=== PATIENT | male | born 1975 | race Caucasian/White ===

== ENCOUNTER 2016-06-30 16:47 | Emergency (ER) | payer OTHER ==
[~2016-06-30] VITALS: Ht 167.6 cm; Wt 79.9 kg
[~2016-06-30 16:47] MED LIST: ATR25 PO; CITA40TA12 PO
[2016-06-30 16:52] VITALS: TEMP 37; Ht 167.6 cm; Wt 79.9 kg
[2016-06-30] MEDS ORDERED: MIRT15TA2 PO (17:01)
[2016-06-30] MEDS ORDERED: IBUP-1428 PO (17:01)
[2016-06-30] MEDS ORDERED: CITA40TA12 PO (17:01)
[2016-06-30] MEDS ORDERED: CLON0.5T3 PO (17:01)
--- NOTE | 2016-06-30 17:44 | DIAGNOSTIC IMAGING REPORT ---
RIGHT RIBS UNILATERAL WITH PA CHEST CLINICAL HISTORY: Right rib pain following fall. COMPARISON STUDY: Right rib series and chest radiograph April 02, 2015. FINDINGS: There is no pneumothorax or pleural effusion. Mild interstitial prominence is unchanged. Lungs are clear. Cardiac size is normal. No acute right rib fractures are identified. IMPRESSION: No pneumothorax. No acute right rib fractures identified. Electronically signed by: Jimmy Dubon M.D. 06/30/2016 5:43 PM Dictated Date/Time: 06/30/2016 5:40 PM
--- NOTE | 2016-06-30 17:53 | EMERGENCY ROOM VISIT NOTE ---
ED Visit Note First contact with patient: 16:54 CHIEF COMPLAINT: Rib injury HISTORY OF PRESENT ILLNESS: This 41-year-old male patient presents to the emergency department ambulatory complaining of pain in the right ribs after a fall which occurred this morning. The patient states that he tripped over a dog gate and felt a pop in the right side of his chest. He is unsure if he hit his ribs, but does state that he has a history of rib fractures on this side. There is increased pain with deep breathing. Attempting to sit up from a lying position is painful. Denies shortness of breath or coughing up blood. The patient rates the pain as sharp and 7/10. The patient has taken ibuprofen without relief of the pain. The patient denies any other injury. The patient denies any abdominal pain, nausea, or vomiting. REVIEW OF SYSTEMS: A 6 system review of systems was completed with positives and pertinent negatives listed in the HPI. ALLERGIES: No known drug allergies MEDICATIONS: Celexa, Klonopin, Remeron PMH: No significant past medical history. SOCIAL HISTORY: The patient lives locally with his fiance. He is a smoker and admits to occasional alcohol use. PHYSICAL EXAM: VITALS: Vitals are noted on the nurse's note and reviewed by myself. Vital signs stable. GENERAL: This is a 41-year-old male, in no acute distress, nondiaphoretic, well- developed well-nourished. LUNGS: Clear to auscultation and breath sounds equal , no wheezes, rales, or rhonchi. HEART: Heart sounds are regular without murmurs, ectopy, gallop, or rub. CHEST: The right chest wall is tender to palpation over the anterior and lateral lower ribs but there is no fracture crepitus and no ecchymosis. There is no tachypnea or dyspnea. ABDOMEN: Positive bowel sounds x 4. Normal tympanic percussion. Soft, nontender, without masses or organomegaly. No guarding or rebound tenderness. NEURO: Patient was alert and oriented to person place and time. RADIOGRAPHIC FINDINGS: RIGHT RIBS UNILATERAL WITH PA CHEST CLINICAL HISTORY: Right rib pain following fall. COMPARISON STUDY: Right rib series and chest radiograph April 02, 2015. FINDINGS: There is no pneumothorax or pleural effusion. Mild interstitial prominence is unchanged. Lungs are clear. Cardiac size is normal. No acute right rib fractures are identified. IMPRESSION: No pneumothorax. No acute right rib fractures identified. EMERGENCY DEPARTMENT COURSE: I examined the patient. X-rays of the chest with right rib detail was reviewed by myself and radiology and show no acute fractures. I feel the patient likely suffered an intercostal strain. Conservative measures were discussed. He was given 800 milligrams ibuprofen here for pain. He was instructed to follow-up with his primary care provider as needed. He verbalized understanding of my assessment and treatment plan and was discharged home in good condition. DIAGNOSIS: Rib strain Problem List Medical Problems: (1) Anxiety and depression Status: Chronic (2) Drug abuse Status: Chronic Surgical Problems: (1) No significant past surgical history Status: Chronic Current/Historical Medications Scheduled Citalopram Hydrobromide (Celexa), 40 MG PO DAILY Mirtazapine Soltab (Remeron Soltab), 15 MG PO HS Scheduled PRN Clonazepam (Klonopin), 0.5 MG PO BID PRN for Anxiety Ibuprofen (Motrin), 800 MG PO DAILY PRN for Pain Allergies Coded Allergies: No Known Allergies (Unverified , 07/05/15) Vital Signs Date Time Temp Pulse Resp B/P Pulse Ox O2 Delivery O2 Flow Rate FiO2 06/30/16 18:19 67 20 123/71 98 06/30/16 16:52 37.0 60 20 119/76 98 Room Air Medications Administered Medications (Trade) Dose Ordered Sig/Carlie Route Start Time Stop Time Status Last Admin Dose Admin Ibuprofen (Motrin Tab) 800 mg NOW STAT PO 06/30/16 18:12 06/30/16 18:13 DC 06/30/16 18:16 800 MG Departure Information Impression Primary Impression: Intercostal muscle strain Dispostion Home / Self-Care Condition GOOD Referrals No Doctor, Assigned (PCP) Patient Instructions [facility] Additional Instructions You have been treated in the Emergency Department for Rib strain. For pain control, you can use the following mwon-kdt-nhlinia medicines (if >12 yo): - Regular strength (325mg/tab) Tylenol (acetaminophen) 2 tabs every 4-6 hours as needed. Do not exceed 12 tablets in a 24 hour period. Avoid taking more than 4 grams (4000 mg) of Tylenol per day. This includes any other sources of acetaminophen you may take on a regular basis. - Regular strength (200 mg/tab) Advil (ibuprofen) 1-2 tabs every 4-6 hours as needed. Do not exceed a dose of 3200 mg per day. If this is an acute injury, ice can be applied to the area of pain for the first 3 days to help decrease pain and inflammation. After the first 3 days, a heating pad can be used over the area for continued soothing relief. To minimize your discomfort, you can hug a pillow while coughing or sneezing. Additionally, you should continue to force yourself to take nice, deep breaths. Full expansion of the lungs is necessary to prevent the accumulation of fluid in the lung tissue and development of pneumonia. You should schedule a follow-up appointment in 2-3 days with your Primary Care Provider for further evaluation and treatment of your back pain. Return to the Emergency Department if your current symptoms worsen despite treatment course outlined above, or if you develop any of the following symptoms : intractable pain despite aforementioned treatment course, development of a wet cough, bloody cough, fever, chills, or increased shortness of breath. Problem Qualifiers Primary Impression: Intercostal muscle strain Encounter type: initial encounter Qualified Codes: S29.011A - Strain of muscle and tendon of front wall of thorax, initial encounter
[2016-06-30] MEDS ORDERED: IBUPROFEN 800 MG TAB PO STA (18:12)
[2016-06-30 18:19] VITALS: BP 123/71; PULSE 67; O2SAT 98
== END 2016-06-30 18:20 | disposition home or self-care (01) ==
LOC: C.EDB 16:49 → C.EDD 18:20
DX: S29.001A Unspecified injury of muscle and tendon of front wall of thorax, initial encounter (principal); W01.0XXA Fall on same level from slipping, tripping and stumbling without subsequent striking against object, initial encounter; F17.200 Nicotine dependence, unspecified, uncomplicated; F41.8 Other specified anxiety disorders; Z79.899 Other long term (current) drug therapy

== ENCOUNTER 2016-07-13 23:39 | Emergency (ER) | payer OTHER ==
[~2016-07-13] VITALS: Ht 167.6 cm; Wt 79.1 kg
[~2016-07-13 23:39] MED LIST changes: -ATR25 PO; +CLON0.5T3 PO; +IBUP-1428 PO; +MIRT15TA2 PO
[2016-07-13 23:42] VITALS: TEMP 36.4; Ht 167.6 cm; Wt 79.1 kg
[2016-07-13] MEDS ORDERED: AMOXICILLIN 250 MG CAP PO STA (23:56)
[2016-07-13] MEDS ORDERED: TRAM-10 PO (23:59)
[2016-07-13] MEDS ORDERED: AMOX500C3 PO (23:59)
[2016-07-14] MEDS ORDERED: TRAMADOL HCL 50 MG HOME PACK PO ONE
--- NOTE | 2016-07-14 00:04 | EMERGENCY ROOM VISIT NOTE ---
History First contact with patient: 23:45 Chief Complaint: DENTAL PAIN Stated Complaint: SEVERE TOOTH PAIN Nursing Triage Summary: c/o dental pain History of Present Illness The patient is a 41 year old male who presents to the Emergency Room with complaints of dental pain for the past several days has not seen a dentist in quite sometime. He has an appointment on Saturday with the dentist. Patient tried Orajel and Motrin with no improvement of symptoms. He discussed pain as aching, ranging in severity 6 out of 10 worse with chewing and better with rest. Patient denies fevers, cold symptoms, sore throat, cough, congestion, chest pain, dyspnea, facial swelling, lightheadedness or dizziness. He is tolerating by mouth fluids and food. Review of Systems See HPI for pertinent positives & negatives. A total of 10 systems reviewed and were otherwise negative. Past Medical/Surgical History Medical Problems: (1) Anxiety and depression (2) Drug abuse (3) Drug overdose, intentional Surgical Problems: (1) No significant past surgical history Family History Cancer Diabetes mellitus Hypertension Social History Smoking Status: Current Every Day Smoker Alcohol Use: none Drug Use: marijuana Marital Status: in relationship Occupation Status: unemployed Current/Historical Medications Scheduled Amoxicillin (Amoxil), 500 MG PO TID Citalopram Hydrobromide (Celexa), 40 MG PO DAILY Mirtazapine Soltab (Remeron Soltab), 15 MG PO HS Scheduled PRN Clonazepam (Klonopin), 0.5 MG PO BID PRN for Anxiety Ibuprofen (Motrin), 800 MG PO DAILY PRN for Pain Tramadol (Ultram), 1 TAB PO Q4H PRN for Pain Allergies Coded Allergies: No Known Allergies (Unverified , 07/05/15) Physical Exam Vital Signs Date Time Temp Pulse Resp B/P Pulse Ox O2 Delivery O2 Flow Rate FiO2 07/13/16 23:42 36.4 68 18 154/96 97 Room Air Physical Exam VITALS: Vitals are noted on the nurse's note and reviewed by myself. Vital signs stable. GENERAL: White male with tobacco odor, in no acute distress, nondiaphoretic, well-developed well-nourished. SKIN: The skin was without rashes, erythema, edema, or bruising. There is no tenting of the skin. Capillary reflex less than 2 seconds. HEAD: Normocephalic atraumatic. EARS: External auditory canals clear, tympanic membranes pearly wharton without erythema or effusion bilaterally. EYES: Pupils equal round and reactive to light and accommodation. Conjunctivae without injection, sclerae without icterus. Extraocular movements intact. NOSE: Patent, turbinates without inflammation or discharge. No sinus tenderness. MOUTH: Mucous membranes moist. No Yair's angina Pharynx without erythema or exudate. Uvula midline. Airway patent. Tongue does not deviate. Dental exam: Extensive dental decay with no palpable abscess NECK: Supple without nuchal rigidity. No lymphadenopathy. No thyromegaly. Cervical spine is nontender. No JVD. HEART: Regular rate and rhythm without murmurs gallops or rubs. LUNGS: Clear to auscultation bilaterally without wheezes, rales or rhonchi. No dullness to percussion. No retractions or accessory muscle use. ABDOMEN: Positive bowel sounds x 4. Normal tympanic percussion. Soft, nontender, without masses or organomegaly. Jean sign negative. No guarding or rebound tenderness. MUSCULOSKELETAL: No muscle atrophy, erythema, or edema noted. NEURO: Patient was alert and oriented to person place and time. Normal sensation to light and sharp touch. No focal neurological deficits. Medical Decision & Procedures ED Course Prior records reviewed and summarized as above. Triage Nursing notes reviewed. Additional history obtained from friend. The patient's history was concerning for dental pain. Differential diagnosis: Etiologies such as cellulitis, abscess, Yair's angina, gingivitis, as well as others were entertained.. Physical examination: The physical examination was consistent with and the pain and dental caries ER treatment provided: Amoxicillin, Ultram On reassessment the patient felt better. Diagnostics interpreted by me: Deferred This appears to be dental pain and dental caries. Patient had no palpable abscess. He is afebrile and nontoxic. No signs of airway compromise. He was counseled on proper dental hygiene and verbalized understanding of this. He was advised to keep his appointment as scheduled with dentistry on Saturday for definitive care for his ongoing dental issues. He is advised to return to the ER immediately for facial swelling, fevers, difficulty swelling, worsening signs or symptoms or as needed. By the evaluation outlined above emergent etiologies such as abscess, Yair angina, as well as others were deemed relatively unlikely. The pt informed about the findings as listed above. All questions were answered and pleased with the treatment. Return instructions were outlined and the patient was discharged in stable condition. Outpatient prescription management: Amoxicillin, Ultram Referral: The patient was referred back to dentistry for follow-up in 2 to 3 days for a recheck of the current condition. Medical Decision As above [place] [facility] Monitoring [place] Search Results: patient reviewed within database, no issues identified Impression Primary Impression: Dental caries Additional Impression: Tooth pain with chewing Departure Information Dispostion Home / Self-Care Condition GOOD Prescriptions Tramadol (Ultram) 50 Mg Tab 1 TAB PO Q4H Y for Pain, #10 TAB For Initial Treatment Prov: Xochilt Romero .BRINA 07/13/16 Amoxicillin (AMOXIL) 500 Mg Cap 500 MG PO TID for 10 Days, #30 CAP Prov: Xochilt Romero .BRINA 07/13/16 Referrals No Doctor, Assigned (PCP) Forms HOME CARE DOCUMENTATION FORM, IMPORTANT VISIT INFORMATION Patient Instructions [facility] Additional Instructions Amoxicillin 500mg: Take one pill 3 times daily for 10 days for your infection. All antibiotics can cause diarrhea. If this occurs and you feel worse or it does not resolve in 1-2 days follow up with your doctor or return to the Emergency Department as this could be signs of serious underlying problems. Any medication can cause an allergic reaction, stop the pills immediately and return to the ER for rash, hives, breathing difficulties, or swelling. Ultram 50 mg: Take 1-2 pills every four hours for breakthrough pain. Avoid alcohol, operating machinery or dangerous equipment, working on ladders or roofs , DRIVING, or situations where being under the influence may be dangerous. It is recommended to use an yjxv-ldo-wlzbzdy stool softener such as Colace, 100mg twice daily while taking this medication to avoid constipation. Ibuprofen(Motrin, Advil) may be used for fever or pain. Use 600mg every six hours as needed. Take with food. Avoid using more than 2400mg in a 24 hour period. Do not use 2400mg per day for more than three consecutive days without physician direction. Prolonged inappropriate use can lead to stomach upset or ulcers. This medication can be taken if you need to drive, work, or perform activities which may be dangerous when taking narcotic pain medication. (AND/OR) Acetaminophen(Tylenol) may be used for fever or pain. Use 1000mg every six hours as needed. Avoid using more than 3000mg in a 24 hour period. This medication can be taken if you need to drive, work, or perform activities which may be dangerous when taking narcotic pain medication. [place] teeth twice a day, floss daily and do warm saltwater gargles 3 times a day. See a dentist as soon as possible for definitive care for your dental problem. Return to ER sooner for facial swelling, fever, redness, worsening signs or symptoms or as needed. Problem Qualifiers
[2016-07-14 00:07] VITALS: BP 116/80; PULSE 65; O2SAT 97
== END 2016-07-14 00:10 | disposition home or self-care (01) ==
LOC: C.EDB 23:40 → C.EDA 07-14 00:10
DX: K02.9 Dental caries, unspecified (principal); K08.89 Other specified disorders of teeth and supporting structures; F41.8 Other specified anxiety disorders; F12.90 Cannabis use, unspecified, uncomplicated; F17.200 Nicotine dependence, unspecified, uncomplicated; Z83.3 Family history of diabetes mellitus; Z82.49 Family history of ischemic heart disease and other diseases of the circulatory system

== ENCOUNTER 2016-08-13 20:27 | Emergency (ER) | payer OTHER ==
[~2016-08-13] VITALS: Ht 167.6 cm; Wt 75.3 kg
[~2016-08-13 20:27] MED LIST changes: +TRAM-10 PO
[2016-08-13 20:30] VITALS: TEMP 36.5; Ht 167.6 cm; Wt 75.3 kg
[2016-08-13] MEDS ORDERED: SODIUM CHLORIDE 0.9% 1000ML 1,000 ML IV STA (20:40)
[2016-08-13] MEDS ORDERED: GI COCKTAIL PO STA (20:40)
[2016-08-13] MEDS ORDERED: SUCRALFATE 1 GM TAB PO STA (20:40)
[2016-08-13] MEDS ORDERED: FAMOTIDINE 20 MG TAB PO STA (20:40)
--- NOTE | 2016-08-13 20:49 | EMERGENCY ROOM VISIT NOTE ---
History Report prepared by Ashley: Sherry Luna Under the Supervision of: Dr. Rich Nolan M.D. First contact with patient: 20:34 Chief Complaint: RESPIRATORY PROBLEMS Stated Complaint: SORE THROAT, SWELLING, HARD TIME BREATHING History of Present Illness The patient is a 41 year old male who presents to the Emergency Room with complaints of persistent respiratory problems that began prior to arrival. The patient states that for the last 15 days he has been out of his Klonopin. The patient states that there is a block on his account for his Klonopin, but states that he is not concerned about running out of the medication. The patient states that recently he has had difficultly breathing, has been chilled , and diaphoretic. He states that he has had a sore throat and states that he feels like something is stuck in his throat. The patient states that he has been feeling fatigued today as well. He states that he has had difficulty swallowing and breathing. Source of History: patient Onset: prior to arrival Position: other (global) Quality: other (respiratory problems) Timing: other (persistent) Associated Symptoms: + chills, + diaphoresis, + fatigue, + sorethroat Note: Associated Symptoms: difficulty swallowing, something stuck in his throat Review of Systems See HPI for pertinent positives & negatives. A total of 10 systems reviewed and were otherwise negative. Past Medical & Surgical Medical Problems: (1) Anxiety and depression (2) Drug abuse (3) Drug overdose, intentional Surgical Problems: (1) No significant past surgical history Family History Cancer Diabetes mellitus Hypertension Social History Smoking Status: Current Every Day Smoker Alcohol Use: none Drug Use: marijuana Marital Status: in relationship Occupation Status: unemployed Current/Historical Medications Scheduled Citalopram Hydrobromide (Celexa), 40 MG PO DAILY Famotidine (Pepcid), 40 MG PO HS Mirtazapine Soltab (Remeron Soltab), 15 MG PO HS Scheduled PRN Clonazepam (Klonopin), 1 TAB PO BID PRN for Anxiety/Agitation Allergies Coded Allergies: No Known Allergies (Unverified , 08/13/16) Physical Exam Vital Signs Date Time Temp Pulse Resp B/P Pulse Ox O2 Delivery O2 Flow Rate FiO2 08/13/16 22:46 76 18 116/77 98 08/13/16 21:08 98 Room Air 08/13/16 21:02 74 08/13/16 20:40 97 Room Air 08/13/16 20:30 36.5 82 16 130/89 97 Room Air Physical Exam GENERAL: Patient is a healthy-appearing well-nourished HEAD: Normocephalic atraumatic EYES: Ocular movements intact pupils equal and react to light OROPHARYNX mucous membranes are moist no exudates present no erythema or edema present NECK: Supple no nuchal rigidity CHEST: Good equal expansion LUNGS: Clear and equal to auscultation CARDIAC: Normal S1 and S2 ABDOMEN: Soft nontender no guarding BACK: No CVA tenderness EXTREMITIES: No pain upon palpation normal muscle strength in all groups no clubbing cyanosis or edema NEURO: Patient is following commands is answering questions appropriately. Alert and oriented x3 Cranial Nerves 2-12 grossly intact Medical Decision & Procedures ER Provider Diagnostic Interpretation: Radiology results as stated below per my review and radiologist interpretation: SOFT TISSUES NECK 2 VIEWS CLINICAL HISTORY: Foreign body sensation in the throat. FINDINGS: AP and lateral views of the soft tissues of the neck are obtained. No prior studies are available for comparison at the time of dictation. The pharyngeal soft tissues are normal as visualized. No radiodense foreign body is seen. The prevertebral/retropharyngeal soft tissues are unremarkable. The epiglottic shadow is normal. The airway is widely patent. Mild degenerative change is noted at C5-C6. Visualized apical lung parenchyma is clear. IMPRESSION: Unremarkable radiographic assessment of the soft tissues of the neck. Electronically signed by: Danyel De Jesus M.D. 08/13/2016 9:36 PM Dictated Date/Time: 08/13/2016 9:34 PM SINGLE VIEW CHEST CLINICAL HISTORY: Foreign body sensation in the throat. FINDINGS: An AP, portable, upright chest radiograph is compared to study dated 06/30/2016. The examination is degraded by portable technique and patient rotation. The cardiomediastinal silhouette is unremarkable. No radiodense foreign body is identified. The lungs and pleural spaces are clear. No pneumothorax is seen. The bony thorax is grossly intact. IMPRESSION: No active disease in the chest. Electronically signed by: Danyel De Jesus M.D. 08/13/2016 9:34 PM Dictated Date/Time: 08/13/2016 9:33 PM Laboratory Results 08/13/16 20:57 Red Blood Count 5.38, Mean Corpuscular Volume 86.6, Mean Corpuscular Hemoglobin 31.2, Mean Corpuscular Hemoglobin Concent 36.1, Mean Platelet Volume 10.7, Neutrophils (%) (Auto) 56.7, Lymphocytes (%) (Auto) 31.6, Monocytes (%) (Auto) 8.4, Eosinophils (%) (Auto) 2.9, Basophils (%) (Auto) 0.2, Neutrophils # (Auto) 6.51, Lymphocytes # (Auto) 3.63, Monocytes # (Auto) 0.96, Eosinophils # (Auto) 0.33, Basophils # (Auto) 0.02 08/13/16 20:57 Test 08/13/16 20:57 08/13/16 21:08 White Blood Count 11.47 K/uL (4.8-10.8) Red Blood Count 5.38 M/uL (4.7-6.1) Hemoglobin 16.8 g/dL (14.0-18.0) Hematocrit 46.6 % (42-52) Mean Corpuscular Volume 86.6 fL (80-100) Mean Corpuscular Hemoglobin 31.2 pg (25-34) Mean Corpuscular Hemoglobin Concent 36.1 g/dl (32-36) Platelet Count 345 K/uL (130-400) Mean Platelet Volume 10.7 fL (7.4-10.4) Neutrophils (%) (Auto) 56.7 % Lymphocytes (%) (Auto) 31.6 % Monocytes (%) (Auto) 8.4 % Eosinophils (%) (Auto) 2.9 % Basophils (%) (Auto) 0.2 % Neutrophils # (Auto) 6.51 K/uL (1.4-6.5) Lymphocytes # (Auto) 3.63 K/uL (1.2-3.4) Monocytes # (Auto) 0.96 K/uL (0.11-0.59) Eosinophils # (Auto) 0.33 K/uL (0-0.5) Basophils # (Auto) 0.02 K/uL (0-0.2) RDW Standard Deviation 41.6 fL (36.4-46.3) RDW Coefficient of Variation 13.1 % (11.5-14.5) Immature Granulocyte % (Auto) 0.2 % Immature Granulocyte # (Auto) 0.02 K/uL (0.00-0.02) Anion Gap 10.0 mmol/L (3-11) Est Creatinine Clear Calc Drug Dose 101.8 ml/min Estimated GFR () 125.1 Estimated GFR (Non- 108.0 BUN/Creatinine Ratio 14.7 (10-20) Calcium Level 9.6 mg/dl (8.5-10.1) Total Bilirubin 0.9 mg/dl (0.2-1) Direct Bilirubin 0.2 mg/dl (0-0.2) Aspartate Amino Transf (AST/SGOT) 16 U/L (15-37) Alanine Aminotransferase (ALT/SGPT) 32 U/L (12-78) Alkaline Phosphatase 109 U/L (45-117) Total Protein 7.6 gm/dl (6.4-8.2) Albumin 4.5 gm/dl (3.4-5.0) Thyroid Stimulating Hormone (TSH) 1.960 uIu/ml (0.300-4.500) Monoscreen NEG (NEG) Ethyl Alcohol mg/dL < 3.0 mg/dl (0-3) Labs reviewed by ED physician. Medications Administered Medications (Trade) Dose Ordered Sig/Carlie Route Start Time Stop Time Status Last Admin Dose Admin Sodium Chloride (Nss 1000ml) 1,000 ml @ 999 mls/hr Q1H1M STAT IV 08/13/16 20:40 08/13/16 21:40 DC 08/13/16 21:37 999 MLS/HR Famotidine (Pepcid Tab) 20 mg NOW STAT PO 08/13/16 20:40 08/13/16 20:44 DC 08/13/16 21:37 20 MG Sucralfate (Carafate Tab) 1 gm NOW STAT PO 08/13/16 20:40 08/13/16 20:44 DC 08/13/16 21:37 1 GM Clonazepam (Klonopin Tab) 0.5 mg NOW STAT PO 08/13/16 21:20 08/13/16 21:21 DC 08/13/16 21:37 0.5 MG Al Hydroxide/Mg Hydroxide (Maalox Susp) 30 ml STK-MED ONCE .ROUTE 08/13/16 21:31 08/13/16 21:32 DC 5/15/17 21:37 30 ML Lidocaine HCl (Viscous Lidocaine 2% Soln) 20 ml STK-MED ONCE .ROUTE 08/13/16 21:32 08/13/16 21:33 DC 08/13/16 21:37 20 ML ECG Indication: other (fatigue) Rate (beats per minute): 75 Rhythm: normal sinus Findings: no acute ischemic change, no ectopy ED Course 2036: Past medical records reviewed. The patient was evaluated in room B12B. A complete history and physical examination was performed. 2039: Ordered Sucralfate 1 gm PO, Famotidine 20 mg PO, GI Cocktail 24 ml PO, Sodium Chloride 1000 ml @ 999 mls/hr IV. 2119: Ordered Clonazepam 0.5 mg PO. 2214: I reevaluated the patient and he is resting comfortably. I discussed the exam findings with him and I discussed the treatment plan. He verbalized complete understanding and agreement. He is ready to go home. Medical Decision Differential diagnosis: Etiologies such as metabolic, infection, hypo/hyperglycemia, electrolyte abnormalities, cardiac sources, intracerebral event, toxicologic, neurologic, as well as others were entertained. This is a 41-year-old male who presents emergency Department with multiple complaints. The patient's clonidine was recently stopped other both the patient and his friend feel that this was a pharmacy error. I did do a PDM P search on this patient and no Klonopin prescriptions came up. For this reason I felt he could be given a temporary supply as he is going to follow-up with his primary care physician. For this reason the patient was given 0.5 mg of Klonopin in the emergency department. He was given normal saline bolus. He does have a slight elevation in his white blood count cell count however he has no evidence of infection and is afebrile here. He was also given Pepcid Carafate and GI cocktail for GERD. Repeat examination revealed improvement patient's symptoms. I recommended the patient be placed on Pepcid and encouraged follow-up with his primary care physician. Patient and friend were in agreement with the treatment plan. Impression Primary Impression: GERD (gastroesophageal reflux disease) Scribe Attestation The scribe's documentation has been prepared under my direction and personally reviewed by me in its entirety. I confirm that the note above accurately reflects all work, treatment, procedures, and medical decision making performed by me. Departure Information Dispostion Home / Self-Care Prescriptions Clonazepam (KLONOPIN) 0.5 Mg Tab 1 TAB PO BID Y for Anxiety/Agitation for 5 Days, #10 TAB Prov: Rich Nolan MD 08/13/16 Famotidine (Pepcid) 40 Mg Tab 40 MG PO HS for 30 Days, #30 TAB Prov: Rich Nolan MD 08/13/16 Referrals No Doctor, Assigned (PCP) Forms HOME CARE DOCUMENTATION FORM, IMPORTANT VISIT INFORMATION, WORK / SCHOOL INSTRUCTIONS Patient Instructions ED Diet Clear Liquid, GERD, [facility] Additional Instructions Clear liquid diet next 48 hours Culture results should be ready in 48 hours You have been examined and treated today on an emergency basis only. This is not a substitute for, or an effort to provide, complete comprehensive medical care. It is impossible to recognize and treat all injuries or illnesses in a single emergency department visit. It is therefore important that you follow up closely with your PCP. Call as soon as possible for an appointment. Thank you for your time and consideration. I look forward to speaking with you again soon. Please don't hesitate to call us if you have any questions. Problem Qualifiers Primary Impression: GERD (gastroesophageal reflux disease) Esophagitis presence: esophagitis presence not specified Qualified Codes: K21.9 - Gastro-esophageal reflux disease without esophagitis
[2016-08-13 21:08] VITALS: O2SAT 98
[2016-08-13 21:08] LABS: BASO % 0.2 %; BASO ABS # 0.02 K/uL (0-0.2); COMPLETE YES; EOS % 2.9 %; HEMATOCRIT 46.6 % (42-52); IG% 0.2 %; LYMPH % 31.6 %; LYMPH ABS # 3.63 K/uL (1.2-3.4); MEAN CELL VOLUME 86.6 fL (80-100); MEAN CORPUSCULAR HEMOGLOBIN 31.2 pg (25-34); MEAN CORPUSCULAR HGB CONC 36.1 g/dl (32-36); MEAN PLATELET VOLUME 10.7 fL (7.4-10.4); MONO % 8.4 %; NEUT % 56.7 %; PLATELET COUNT 345 K/uL (130-400); RED BLOOD COUNT 5.38 M/uL (4.7-6.1); WHITE BLOOD COUNT 11.47 K/uL (4.8-10.8)
[2016-08-13] MEDS ORDERED: CLONAZEPAM 0.5 MG TAB PO STA (21:20)
[2016-08-13 21:26] LABS: BUN/CREATININE RATIO 14.7 (10-20); CREATININE 0.87 mg/dl (0.60-1.40); POTASSIUM 3.7 mmol/L (3.5-5.1)
[2016-08-13] MEDS ORDERED: ALUMINUM/MAGNESIUM SUSP 30 ML UDC ONE (21:31)
[2016-08-13] MEDS ORDERED: LIDOCAINE HCL 2% VISC SOLN 20 ML UDC ONE (21:32)
--- NOTE | 2016-08-13 21:35 | DIAGNOSTIC IMAGING REPORT ---
SINGLE VIEW CHEST CLINICAL HISTORY: Foreign body sensation in the throat. FINDINGS: An AP, portable, upright chest radiograph is compared to study dated 06/30/2016. The examination is degraded by portable technique and patient rotation. The cardiomediastinal silhouette is unremarkable. No radiodense foreign body is identified. The lungs and pleural spaces are clear. No pneumothorax is seen. The bony thorax is grossly intact. IMPRESSION: No active disease in the chest. Electronically signed by: Danyel De Jesus M.D. 08/13/2016 9:34 PM Dictated Date/Time: 08/13/2016 9:33 PM
[2016-08-13 21:36] LABS: THYROID STIMULATING HORMONE 1.96 uIu/ml (0.300-4.500)
--- NOTE | 2016-08-13 21:37 | DIAGNOSTIC IMAGING REPORT ---
SOFT TISSUES NECK 2 VIEWS CLINICAL HISTORY: Foreign body sensation in the throat. FINDINGS: AP and lateral views of the soft tissues of the neck are obtained. No prior studies are available for comparison at the time of dictation. The pharyngeal soft tissues are normal as visualized. No radiodense foreign body is seen. The prevertebral/retropharyngeal soft tissues are unremarkable. The epiglottic shadow is normal. The airway is widely patent. Mild degenerative change is noted at C5-C6. Visualized apical lung parenchyma is clear. IMPRESSION: Unremarkable radiographic assessment of the soft tissues of the neck. Electronically signed by: Danyel De Jesus M.D. 08/13/2016 9:36 PM Dictated Date/Time: 08/13/2016 9:34 PM
[2016-08-13 21:57] LABS: CALCIUM 9.6 mg/dl (8.5-10.1)
[2016-08-13] MEDS ORDERED: FAMO40TA6 PO (22:28)
[2016-08-13] MEDS ORDERED: CLON0.5T3 PO (22:28)
[2016-08-13 22:46] VITALS: BP 116/77; PULSE 76; O2SAT 98
--- NOTE | 2016-08-14 13:00 | Pharmacy Progress Note ---
ED Pharmacist Progress Note Date of Service: August 14, 2016. Patient called today stating that [facility] would not fill the Rx Dr Nolan had given for Clonazepam. He was seen and evaluated in the ER for c/ o chills, fatigue, diaphoresis and sore throat. He was ultimately dx with GERD and also felt to have some symptoms of benzo withdrawal. He had been taking Clonazepam chronically but states he ran out on [address] Nolan had sent a Rx to [facility] for the 5 days supply, but the pharmacy stated that the [facility] has blocked them from filling the Rx. I spoke the the pharmacist there today and she stated the [facility] blocks filling of this Rx as the Rx is for the same dose as his chronic rx and that he had filled #180 tablets on 05/23/16 a 90 days-supply and he is not permitted to have the Rx filled until 08/18. I reviewed the case w/ Dr Helms, he is advised to monitor for worsening s/s of withdrawal, anxiety, tremors, sz, hallucinations. If he has been w/o clonazepam for 14 days, one would expect him to be beyond most of the severe withdrawal symptoms. There is question as to whether he is taking as prescribed. Advised patient of s/s withdrawal and that he should return to ER for eval if concerning symptoms develop, but the ER cannot override the [facility]'s block on his clonazepam refill.
== END 2016-08-13 23:05 | disposition home or self-care (01) ==
LOC: C.EDB 20:27
DX: K21.9 Gastro-esophageal reflux disease without esophagitis (principal); J02.9 Acute pharyngitis, unspecified; R61 Generalized hyperhidrosis; R53.83 Other fatigue; F41.9 Anxiety disorder, unspecified; F32.9 Major depressive disorder, single episode, unspecified; Z79.899 Other long term (current) drug therapy; Z82.49 Family history of ischemic heart disease and other diseases of the circulatory system; Z83.3 Family history of diabetes mellitus; F17.200 Nicotine dependence, unspecified, uncomplicated

== ENCOUNTER 2017-04-11 22:04 | Emergency (ER) | payer OTHER ==
[~2017-04-11] VITALS: Ht 167.6 cm; Wt 74.3 kg
[~2017-04-11 22:04] MED LIST changes: -CITA40TA12 PO; -IBUP-1428 PO; -TRAM-10 PO
[2017-04-11 23:03] VITALS: TEMP 36.2; Ht 167.6 cm; Wt 74.3 kg
[2017-04-11] MEDS ORDERED: RABIES IMMUNE GLOBULIN (HUMAN) 150 INTER.UNIT/ML 2 ML VIAL IM. ONE (23:30)
[2017-04-11] MEDS ORDERED: AMOXICILLIN/CLAVULANATE TAB 875 MG TAB PO ONE (23:30)
[2017-04-11] MEDS ORDERED: DIPHTHERIA/TETANUS/PERTUSSIS 0.5 ML SYR/VIAL IM. ONE (23:30)
[2017-04-11] MEDS ORDERED: RABIES VACCINE (IMOVAX) HUMAN DIPL CELL 2.5 INTER.UNIT/ML SYR IM. ONE (23:30)
--- NOTE | 2017-04-11 23:30 | EMERGENCY ROOM VISIT NOTE ---
ED Visit Note First contact with patient: 23:16 CHIEF COMPLAINT: Cat bite HISTORY OF PRESENT ILLNESS: This patient is a 42-year-old white male that presents to the emergency department with a cat bite to his left finger that he sustained 3 days ago. The patient rescued a stray kitten off the street. They were playing when the cat bit him. They're unsure of his vaccination status. The patient's tetanus shot is also not up-to-date. He denies any fever or chills. Denies any significant pain at the cat bite site. REVIEW OF SYSTEMS: A 6 system review of systems was completed with positives and pertinent negatives listed in the HPI. ALLERGIES: No known drug allergies MEDICATIONS: Celexa, Remeron, Klonopin PMH: Depression, anxiety. SOCIAL HISTORY: He smokes approximately 1 pack per day. Denies alcohol or drug use.. PHYSICAL EXAM: Vital Signs: Reviewed Nurse's notes, vital signs stable. GENERAL : 42-year-old male, in no acute distress, well-developed, well-nourished. HEAD : Atraumatic, without temporal or scalp tenderness. EYES: PERRLA, EOMI, no discharge or injection. SKIN: Small area of erythema and 2 round 1 mm vesicles noted to the distal aspect of the left finger. Full range of motion of the left finger. Capillary refills less than 2 seconds. NEUROLOGICAL: Alert and oriented to person place and time. EMERGENCY DEPARTMENT COURSE: I examined the patient. He was given an Adacel injection. He was given 1 dose of Augmentin. The patient was given RIG 20 Units/kg. . The patient was given Imovax IM. The patient was observed for 20 minutes with no reaction. The patient was discharged home in stable condition. DIAGNOSIS: Rabies prophylaxis, cat bite DISCHARGE INSTRUCTIONS: Please take the entire course of antibiotics as directed. Please wash the area daily with soap and water. Apply Neosporin to the wound daily for the first 3 days. Today is day 0. Return to the ER on days 3, 7, and 14 for subsequent vaccinations. Return sooner or follow up with your family doctor for signs of infection (increased redness, discharge, fever) or for complications with the vaccine series.
[2017-04-11] MEDS ORDERED: MIRT45TA PO (23:33)
[2017-04-11] MEDS ORDERED: AMOX875T PO (23:40)
[2017-04-12 00:42] VITALS: BP 104/67; PULSE 65; O2SAT 97
[2017-04-15] MEDS ORDERED: CITA40TA12 PO (17:01)
== END 2017-04-12 00:38 | disposition home or self-care (01) ==
LOC: C.EDB 22:05 → C.EDD 04-12 00:38
DX: Z20.3 Contact with and (suspected) exposure to rabies (principal); S61.259A Open bite of unspecified finger without damage to nail, initial encounter; W55.01XA Bitten by cat, initial encounter; F32.9 Major depressive disorder, single episode, unspecified; F41.9 Anxiety disorder, unspecified; F17.200 Nicotine dependence, unspecified, uncomplicated; Z23 Encounter for immunization

== ENCOUNTER 2017-04-15 21:02 | Emergency (ER) | payer OTHER ==
[~2017-04-15] VITALS: Ht 167.6 cm; Wt 75.5 kg
[~2017-04-15 21:02] MED LIST changes: +AMOX875T PO; +CITA40TA12 PO; -CLON0.5T3 PO; -MIRT15TA2 PO; +MIRT45TA PO
[2017-04-15 21:06] VITALS: TEMP 36.2; Ht 167.6 cm; Wt 75.5 kg
[2017-04-15] MEDS ORDERED: RABIES VACCINE (IMOVAX) HUMAN DIPL CELL 2.5 INTER.UNIT/ML SYR IM. ONE (21:15)
--- NOTE | 2017-04-15 21:35 | EMERGENCY ROOM VISIT NOTE ---
ED Visit Note First contact with patient: 21:09 CHIEF COMPLAINT: Rabies prophylaxis HISTORY OF PRESENT ILLNESS: This 42-year-old male patient presents to the emergency department ambulatory for their second rabies shot. The patient has not had any complications from the previous injections. They deny any other complaints. He is taking the antibiotics as prescribed and states that the wound is healing well. REVIEW OF SYSTEMS: A 6 system review of systems was completed with positives and pertinent negatives listed in the HPI. ALLERGIES: No known drug allergies MEDICATIONS: See med list PMH: "Bowel issues" per patient PHYSICAL EXAM: Vital Signs: Reviewed Nurse's notes, vital signs stable. GENERAL : This is a 42-year-old male, in no acute distress, well-developed, well- nourished. HEAD: Atraumatic, without temporal or scalp tenderness. EYES: PERRLA, EOMI, no discharge or injection. SKIN: Normal. NEUROLOGICAL: Alert and cooperative. Sensory and motor functions grossly intact. EMERGENCY DEPARTMENT COURSE: I examined the patient. The patient was given Imovax 2.5 units IM. The patient was observed for 20 minutes with no reaction. The patient was discharged home in stable condition. DIAGNOSIS: Rabies prophylaxis DISCHARGE INSTRUCTIONS: Continue vaccination schedule as directed. Return for any complications. Problem List Medical Problems: (1) Anxiety and depression Status: Chronic (2) Drug abuse Status: Chronic Surgical Problems: (1) No significant past surgical history Status: Chronic Current/Historical Medications Scheduled Amoxicillin & Pot Clavulanate (Augmentin 875-125 mg), 1 TAB PO BID Citalopram Hydrobromide (Celexa), 40 MG PO DAILY Famotidine (Pepcid), 20 MG PO DAILY Hydrocortisone 2.5% (Rectal) (Anusol-Hc 2.5%), 1 APPLN TOP BID Mirtazapine (Remeron), 15 MG PO HS Scheduled PRN Clonazepam (Klonopin), 0.25 MG PO BID PRN for Anxiety Dicyclomine Hcl (Dicyclomine Hcl), 20 MG PO QID PRN for Moderate Abdominal Pain Allergies Coded Allergies: No Known Allergies (Unverified , 08/13/16) Vital Signs Date Time Temp Pulse Resp B/P (MAP) Pulse Ox O2 Delivery O2 Flow Rate FiO2 04/15/17 21:43 78 18 131/78 100 1/15/18 21:06 36.2 82 18 121/74 96 Room Air Medications Administered Medications (Trade) Dose Ordered Sig/Carlie Route Start Time Stop Time Status Last Admin Dose Admin Rabies Vaccine Human Diploid Cell (Imovax Rabies) 2.5 interunit ONCE ONCE IM. 04/15/17 21:15 04/15/17 21:16 DC 04/15/17 21:26 2.5 INTERUNIT Departure Information Impression Primary Impression: Rabies, need for prophylactic vaccination against Dispostion Home / Self-Care Condition GOOD Referrals Rabia Bautista D.O. (PCP) Patient Instructions [facility] Additional Instructions Return as directed on your initial paperwork for the remaining injections.
[2017-04-15] MEDS ORDERED: HYDR2.5C37 TOP (21:36)
[2017-04-15] MEDS ORDERED: DICY20TA10 PO (21:36)
[2017-04-15] MEDS ORDERED: FAMO20TA11 PO (21:36)
[2017-04-15] MEDS ORDERED: MIRT15TA3 PO (21:36)
[2017-04-15 21:43] VITALS: BP 131/78; PULSE 78; O2SAT 100
[2017-04-15] MEDS ORDERED: CLON0.5T3 PO (23:32)
== END 2017-04-15 21:44 | disposition home or self-care (01) ==
LOC: C.EDB 21:03 → C.EDD 21:44
DX: Z23 Encounter for immunization (principal); Z20.3 Contact with and (suspected) exposure to rabies

== ENCOUNTER 2017-05-01 16:07 | Emergency (ER) | payer OTHER ==
[~2017-05-01] VITALS: Ht 167.6 cm; Wt 73.1 kg
[2017-05-01 16:23] VITALS: Ht 167.6 cm; Wt 73.1 kg
[2017-05-01] MEDS ORDERED: CITA40TA12 PO (17:01)
[2017-05-01 17:48] VITALS: TEMP 36.4; O2SAT 98
--- NOTE | 2017-05-01 18:11 | EMERGENCY ROOM VISIT NOTE ---
History Report prepared by Ashley: Isabel Cook Under the Supervision of: Dr. Se Silva M.D. First contact with patient: 17:51 Chief Complaint: GI ASSESSMENT Stated Complaint: INTESTINAL ISSUES, 3RD RABIES VACCINE Nursing Triage Summary: Diarrhea x 1 month, went 5x today. Stool Sample done at [facility]. C. Diff negative Pt also need 3rd Rabies Vaccine. Stray Cat Bite. Seen here for initial Vaccine. Nausea. Reflux, taking Prilosec. History of Present Illness The patient is a 42 year old white male with a past medical history of GERD, anxiety and depression who presents to the ED with a cc of persistent diarrhea beginning 1 month ago. Positive nausea, abdominal pain. Negative vomiting. He reports he has had 5 episodes of diarrhea so far today. The patient had a C- Diff stool test done at [facility] recently and it came back negative. He has never undergone abdominal surgery. He has been getting rabies vaccines here at the ED for a stray cat bite and is due for his 3rd vaccine. He denies any recent camping, hiking or trips. He states his home used to have well water, but he believes it was treated and he no longer uses a well. He denies any recent falls. 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 A total of ten systems were reviewed and were otherwise negative. Past Medical & Surgical Medical Problems: (1) Anxiety and depression (2) Drug abuse (3) Drug overdose, intentional Surgical Problems: (1) No significant past surgical history Family History Cancer Diabetes mellitus Hypertension Social History Smoking Status: Current Every Day Smoker Alcohol Use: none Drug Use: marijuana Marital Status: in relationship Occupation Status: unemployed Current/Historical Medications Scheduled Citalopram Hydrobromide (Celexa), 40 MG PO DAILY Famotidine (Pepcid), 20 MG PO DAILY Hydrocortisone 2.5% (Rectal) (Anusol-Hc 2.5%), 1 APPLN TOP BID Mirtazapine (Remeron), 15 MG PO HS Scheduled PRN Clonazepam (Klonopin), 0.5 MG PO BID PRN for Anxiety Dicyclomine Hcl (Dicyclomine Hcl), 20 MG PO QID PRN for Moderate Abdominal Pain Allergies Coded Allergies: No Known Allergies (Unverified , 08/13/16) Physical Exam Vital Signs Date Time Temp Pulse Resp B/P (MAP) Pulse Ox O2 Delivery O2 Flow Rate FiO2 05/01/17 19:06 59 16 117/70 05/01/17 17:48 36.4 64 16 130/67 98 Room Air 05/01/17 16:23 36.5 75 16 143/80 99 Room Air 05/01/17 16:14 36.5 75 16 143/80 99 Room Air Physical Exam GENERAL: Awake, alert, well-appearing, NAD HENT: Normocephalic, atraumatic. EYES: Normal conjunctiva. Sclera non-icteric. NECK: Supple. No nuchal rigidity. FROM. RESPIRATORY: CTAB, no rhonchi, wheezing, crackles CARDIAC: RRR, no MRG ABDOMEN: Soft, NTND, BS+, negative obturators and psoas. MSK: No chest wall TTP, no LE edema NEURO: GCS 15, CN 2-12 intact, moves all 4s on command SKIN: No rash or jaundice noted. Medical Decision & Procedures ER Provider Diagnostic Interpretation: Radiology results as stated below per my review and radiologist interpretation: KUB HISTORY: Diarrhea. COMPARISON: None. FINDINGS: The bowel gas pattern is unremarkable. There are no dilated loops of small bowel to suggest an obstruction. No renal calculi. No ureteral calculi. Calcifications in the deep pelvis likely represent phleboliths. No pneumoperitoneum or pneumatosis. IMPRESSION: Unremarkable bowel gas pattern. No evidence for bowel obstruction. Electronically signed by: Anthony De La Rosa M.D. 05/01/2017 6:44 PM Laboratory Results 05/01/17 18:00 Red Blood Count 5.24, Mean Corpuscular Volume 88.9, Mean Corpuscular Hemoglobin 30.9, Mean Corpuscular Hemoglobin Concent 34.8, Mean Platelet Volume 10.6, Neutrophils (%) (Auto) 63.2, Lymphocytes (%) (Auto) 27.5, Monocytes (%) (Auto) 6.5, Eosinophils (%) (Auto) 2.0, Basophils (%) (Auto) 0.5, Neutrophils # (Auto) 6.48, Lymphocytes # (Auto) 2.82, Monocytes # (Auto) 0.67, Eosinophils # (Auto) 0.20, Basophils # (Auto) 0.05 05/01/17 18:00 Test 05/01/17 17:55 05/01/17 18:00 Urine Color YELLOW Urine Appearance CLEAR (CLEAR) Urine pH 7.5 (4.5-7.5) Urine Specific [place] 1.010 (1.000-1.030) Urine Protein NEG (NEG) Urine Glucose (UA) NEG (NEG) Urine Ketones NEG (NEG) Urine Occult Blood NEG (NEG) Urine Nitrite NEG (NEG) Urine Bilirubin NEG (NEG) Urine Urobilinogen NEG (NEG) Urine Leukocyte Esterase NEG (NEG) White Blood Count 10.25 K/uL (4.8-10.8) Red Blood Count 5.24 M/uL (4.7-6.1) Hemoglobin 16.2 g/dL (14.0-18.0) Hematocrit 46.6 % (42-52) Mean Corpuscular Volume 88.9 fL (80-100) Mean Corpuscular Hemoglobin 30.9 pg (25-34) Mean Corpuscular Hemoglobin Concent 34.8 g/dl (32-36) Platelet Count 345 K/uL (130-400) Mean Platelet Volume 10.6 fL (7.4-10.4) Neutrophils (%) (Auto) 63.2 % Lymphocytes (%) (Auto) 27.5 % Monocytes (%) (Auto) 6.5 % Eosinophils (%) (Auto) 2.0 % Basophils (%) (Auto) 0.5 % Neutrophils # (Auto) 6.48 K/uL (1.4-6.5) Lymphocytes # (Auto) 2.82 K/uL (1.2-3.4) Monocytes # (Auto) 0.67 K/uL (0.11-0.59) Eosinophils # (Auto) 0.20 K/uL (0-0.5) Basophils # (Auto) 0.05 K/uL (0-0.2) RDW Standard Deviation 45.7 fL (36.4-46.3) RDW Coefficient of Variation 14.0 % (11.5-14.5) Immature Granulocyte % (Auto) 0.3 % Immature Granulocyte # (Auto) 0.03 K/uL (0.00-0.02) Anion Gap 4.0 mmol/L (3-11) Est Creatinine Clear Calc Drug Dose 94.3 ml/min Estimated GFR () 117.8 Estimated GFR (Non- 101.6 BUN/Creatinine Ratio 10.4 (10-20) Calcium Level 9.2 mg/dl (8.5-10.1) Total Bilirubin 0.5 mg/dl (0.2-1) Direct Bilirubin < 0.1 mg/dl (0-0.2) Aspartate Amino Transf (AST/SGOT) 13 U/L (15-37) Alanine Aminotransferase (ALT/SGPT) 19 U/L (12-78) Alkaline Phosphatase 112 U/L (45-117) Total Protein 8.1 gm/dl (6.4-8.2) Albumin 4.3 gm/dl (3.4-5.0) Lipase 250 U/L (73-393) Laboratory results reviewed by me Medications Administered Medications (Trade) Dose Ordered Sig/Carlie Route Start Time Stop Time Status Last Admin Dose Admin Rabies Vaccine Human Diploid Cell (Imovax Rabies) 2.5 interunit ONCE ONCE IM. 05/01/17 18:15 05/01/17 18:16 DC 05/01/17 18:36 2.5 INTERUNIT ED Course 1800: The patient was evaluated in room A12. A complete history and physical exam was performed. 1805: I reviewed the patients recent lab work done at [facility]. He was negative for Cryptosporidium, Giardia and C-Diff. His WBC was 14. Normal H&H. Normal kidney function. Normal glucose and LFT's. 0: I reevaluated the patient. He is feeling well and ready to go home. I discussed his results and discharge instructions and he verbalized complete understanding and agreement. Medical Decision The patient is a 42 year old white male with a past medical history of GERD, anxiety and depression who presents to the ED with a cc of persistent diarrhea beginning 1 month ago. Triage Nursing notes reviewed. The patient's presentation and history were concerning for diarrhea. Differential diagnosis: Etiologies such as gastroenteritis, food borne illness, infections, appendicitis , diverticulitis, inflammatory bowel disease, obstruction, GI bleed, biliary pathology, as well as others were entertained. Patient was seen and evaluated the bedside. Patient had presented with points of chronic diarrhea. Patient was recently seen in [place] and he did have blood work that was completed there and he did have stool sample that was sent. This was negative for Cryptosporidium as well as Giardia. Negative for C. difficile. Patient's blood work was reviewed which looks fairly normal. Patient did have borderline high cholesterol. Otherwise of shingles. Fairly normal with exception of a mild white count of 14. Patient did have blood work completed today which is fairly unremarkable. Patient also did discuss that he needed his final rabies prophylaxis given his exposure to a 3 weeks prior. The patient received the medication and the patient was feeling well. Patient's blood work again was fairly unremarkable. Patient was deemed suitable for outpatient follow-up and treatment this time. We did discuss decreasing coffee as well as smoking. Also stated he may try some [id number] medications like Imodium and may also consider some irregular to help replace could get vania. Patient was agreeable to this plan of care. Patient was given strict follow-up, discharge, and return precautions. All questions were answered. Patient was deemed suitable for outpatient follow-up at this time. Patient agreed with the plan of care and was safely discharged home. The chart was completed utilizing [employer] Speech voice recognition software. Grammatical errors, random word insertions, pronoun errors, and incomplete sentences are an occasional consequence of this system due to software limitations, ambient noise, and hardware issues. Any formal questions or concerns about the content, text, or information contained within the body of this dictation should be directly addressed to the physician for clarification. Medication Reconcilliation Current Medication List: was personally reviewed by me Blood Pressure Screening Patient's blood pressure: Elevated blood pressure Blood pressure disposition: Elevated BP felt to be situational Impression Primary Impression: Chronic diarrhea Additional Impressions: Encounter for repeat administration of rabies vaccination Encounter for smoking cessation counseling Scribe Attestation The scribe's documentation has been prepared under my direction and personally reviewed by me in its entirety. I confirm that the note above accurately reflects all work, treatment, procedures, and medical decision making performed by me. Departure Information Dispostion Home / Self-Care Referrals Krunal Flor M.D. (MEDICAL) (PCP) Patient Instructions Diarrhea, ED Smoking Cessation, My [facility], Vomit Diarrhea Self Care Additional Instructions Please return to the emergency department if you have worsening or recurrent symptoms not amenable to at-home treatment. Please call for a follow-up appointment with her primary care physician. Please take your medications as prescribed. If you have other concerns and/or complaints please feel free to also call your primary care physician's office or return the ED for further evaluation, management, and treatment. As we discussed please consider avoiding nicotine and coffee. You may consider not only taking the dicyclomine but also something like an Imodium to see if that helps with her bowel movements. Take it only as prescribed. You may take 600 mg Ibuprofen every 6 hours as needed for pain with food for no more than 2 consecutive days. You may take tylenol 1000 mg every 6 hours as needed for pain. You may take motrin and tylenol separately or at the same time. Take your medications as prescribed. Consider eating yogurt to ensure that you have good bacteria within the colon. You have been examined and treated today on an emergency basis only. This is not a substitute for, or an effort to provide, complete comprehensive medical care. It is impossible to recognize and treat all injuries or illnesses in a single emergency department visit. It is therefore important that you follow up closely with [facility], your PCP, and/or your specialist(s). Call as soon as possible for an appointment. Thank you for your time and consideration. I look forward to speaking with you again soon. Please don't hesitate to call us if you have any questions. Problem Qualifiers
[2017-05-01] MEDS ORDERED: RABIES VACCINE (IMOVAX) HUMAN DIPL CELL 2.5 INTER.UNIT/ML SYR IM. ONE (18:15)
[2017-05-01 18:21] LABS: BASO % 0.5 %; BASO ABS # 0.05 K/uL (0-0.2); HEMATOCRIT 46.6 % (42-52); HEMOGLOBIN 16.2 g/dL (14.0-18.0); IG# 0.03 K/uL (0.00-0.02); LYMPH % 27.5 %; LYMPH ABS # 2.82 K/uL (1.2-3.4); MEAN CELL VOLUME 88.9 fL (80-100); MEAN CORPUSCULAR HEMOGLOBIN 30.9 pg (25-34); MEAN CORPUSCULAR HGB CONC 34.8 g/dl (32-36); MEAN PLATELET VOLUME 10.6 fL (7.4-10.4); MONO % 6.5 %; MONO ABS # 0.67 K/uL (0.11-0.59); NEUT % 63.2 %; NEUT ABS # 6.48 K/uL (1.4-6.5); PLATELET COUNT 345 K/uL (130-400); RED CELL DISTRIBUTION WIDTH SD 45.7 fL (36.4-46.3); WHITE BLOOD COUNT 10.25 K/uL (4.8-10.8)
[2017-05-01 18:41] LABS: ALBUMIN 4.3 gm/dl (3.4-5.0); ALT/SGPT 19 U/L (12-78); AST/SGOT 13 U/L (15-37); BLOOD UREA NITROGEN 10 mg/dl (7-18); CALCIUM 9.2 mg/dl (8.5-10.1); CARBON DIOXIDE 29 mmol/L (21-32); CREATININE 0.93 mg/dl (0.60-1.40); GLUCOSE 98 mg/dl (70-99); LIPASE 250 U/L (73-393); POTASSIUM 3.9 mmol/L (3.5-5.1); SODIUM 138 mmol/L (136-145)
[2017-05-01 18:44] LABS: ALKALINE PHOSPHATASE 112 U/L (45-117); TOTAL PROTEIN 8.1 gm/dl (6.4-8.2)
--- NOTE | 2017-05-01 18:45 | DIAGNOSTIC IMAGING REPORT ---
KUB HISTORY: Diarrhea. COMPARISON: None. FINDINGS: The bowel gas pattern is unremarkable. There are no dilated loops of small bowel to suggest an obstruction. No renal calculi. No ureteral calculi. Calcifications in the deep pelvis likely represent phleboliths. No pneumoperitoneum or pneumatosis. IMPRESSION: Unremarkable bowel gas pattern. No evidence for bowel obstruction. Electronically signed by: Anthony De La Rosa M.D. 05/01/2017 6:44 PM Dictated Date/Time: 05/01/2017 6:43 PM
[2017-05-01 19:06] VITALS: BP 117/70; PULSE 59
[2017-05-01] MEDS ORDERED: FAMO20TA11 PO (21:36)
[2017-05-01] MEDS ORDERED: HYDR2.5C37 TOP (21:36)
[2017-05-01] MEDS ORDERED: MIRT15TA3 PO (21:36)
[2017-05-01] MEDS ORDERED: DICY20TA10 PO (21:36)
[2017-05-01] MEDS ORDERED: CLON0.5T3 PO (23:32)
== END 2017-05-01 19:15 | disposition home or self-care (01) ==
LOC: C.EDB 16:08 → C.EDA 19:15
DX: R19.7 Diarrhea, unspecified (principal); Z23 Encounter for immunization; F41.9 Anxiety disorder, unspecified; F31.9 Bipolar disorder, unspecified; Z83.3 Family history of diabetes mellitus; Z82.49 Family history of ischemic heart disease and other diseases of the circulatory system; F17.200 Nicotine dependence, unspecified, uncomplicated; F12.90 Cannabis use, unspecified, uncomplicated

== ENCOUNTER 2017-06-11 23:07 | Emergency (ER) | payer OTHER ==
[~2017-06-11] VITALS: Ht 167.6 cm; Wt 69.9 kg
[~2017-06-11 23:07] MED LIST changes: -AMOX875T PO; +CLON0.5T3 PO; +DICY20TA10 PO; +FAMO20TA11 PO; +HYDR2.5C37 TOP; +MIRT15TA3 PO; -MIRT45TA PO
[2017-06-11 23:10] VITALS: TEMP 36.3; Ht 167.6 cm; Wt 69.9 kg
[2017-06-11] MEDS ORDERED: SODIUM CHLORIDE 0.9% 1000ML 1,000 ML IV STA (23:32)
[2017-06-11] MEDS ORDERED: ONDANSETRON INJ 2 MG/ML 2 ML VIAL IV STA (23:32)
[2017-06-11 23:41] LABS: BASO % 0.3 %; BASO ABS # 0.03 K/uL (0-0.2); EOS ABS # 0.33 K/uL (0-0.5); HEMATOCRIT 49.3 % (42-52); HEMOGLOBIN 17.2 g/dL (14.0-18.0); IG# 0.02 K/uL (0.00-0.02); LYMPH % 34.9 %; LYMPH ABS # 3.86 K/uL (1.2-3.4); MEAN CELL VOLUME 87.7 fL (80-100); MEAN CORPUSCULAR HEMOGLOBIN 30.6 pg (25-34); MEAN CORPUSCULAR HGB CONC 34.9 g/dl (32-36); MEAN PLATELET VOLUME 10.8 fL (7.4-10.4); MONO % 6.9 %; MONO ABS # 0.76 K/uL (0.11-0.59); NEUT % 54.7 %; NEUT ABS # 6.07 K/uL (1.4-6.5); PLATELET COUNT 374 K/uL (130-400); RED CELL DISTRIBUTION WIDTH CV 13.3 % (11.5-14.5); RED CELL DISTRIBUTION WIDTH SD 43.2 fL (36.4-46.3); WHITE BLOOD COUNT 11.07 K/uL (4.8-10.8)
[2017-06-11 23:58] LABS: ALBUMIN 4.5 gm/dl (3.4-5.0); CALCIUM 9.3 mg/dl (8.5-10.1); CREATININE 0.98 mg/dl (0.60-1.40); POTASSIUM 3.6 mmol/L (3.5-5.1)
[2017-06-12 00:01] LABS: TOTAL PROTEIN 7.8 gm/dl (6.4-8.2)
--- NOTE | 2017-06-12 00:22 | EMERGENCY ROOM VISIT NOTE ---
History Report prepared by Ashley: Janis Romero Under the Supervision of: Dr. Rich Alfaro D.O. First contact with patient: 23:24 Chief Complaint: ABDOMINAL PAIN Stated Complaint: ABD ISSUES/MIGRAINE History of Present Illness The patient is a 42 year old male who presents to the Emergency Room with complaints of worsening abdominal pain starting last night. The patient states that he has had chronic diarrhea for a long time. He reports that last night he was woken up by abdominal pain. He states that he started to have an episode of diarrhea and became nauseous. He states that he then vomited and has not been able to keep anything down since. He currently rates his pain as a 6/10 in severity. The patient complains of a headache and nausea. The patient notes that he had a colonoscopy done at the end of May that came back clean. He reports that he was originally scheduled to see a general surgeon for hemorrhoids that need banding if the colonoscopy was not clean and then seeing GI. He states that he was told to cancel the other two consultations. The patient states that his PCP told him that he does need the appointment with GI still. The patient also notes that he needs his last rabies vaccine but doesn't know if he is outside the window for it or not. Source of History: patient Onset: last night Position: abdomen Symptom Intensity: 6/10 Timing: worsening Associated Symptoms: + headache, + nausea, + vomiting, + diarrhea Review of Systems See HPI for pertinent positives & negatives. A total of 10 systems reviewed and were otherwise negative. Past Medical & Surgical Medical Problems: (1) Anxiety and depression (2) Drug abuse (3) Drug overdose, intentional Surgical Problems: (1) H/O colonoscopy (2) No significant past surgical history Family History Cancer Diabetes mellitus Hypertension Social History Smoking Status: Current Every Day Smoker Alcohol Use: none Drug Use: marijuana Marital Status: in relationship Housing Status: lives with significant other Occupation Status: unemployed Current/Historical Medications Scheduled Citalopram Hydrobromide (Celexa), 40 MG PO DAILY Famotidine (Pepcid), 20 MG PO DAILY Mirtazapine (Remeron), 15 MG PO HS Scheduled PRN Clonazepam (Klonopin), 0.5 MG PO BID PRN for Anxiety Dicyclomine Hcl (Dicyclomine Hcl), 20 MG PO QID PRN for Moderate Abdominal Pain Allergies Coded Allergies: No Known Allergies (Unverified , 06/12/17) Physical Exam Vital Signs Date Time Temp Pulse Resp B/P (MAP) Pulse Ox O2 Delivery O2 Flow Rate FiO2 06/12/17 00:30 74 18 112/79 98 06/11/17 23:10 36.3 73 18 114/76 98 Room Air Physical Exam CONSTITUTIONAL/VITAL SIGNS: Reviewed / noted above. GENERAL: Non-toxic in appearance. INTEGUMENTARY: Warm, dry, and [place]. HEAD: Normocephalic. EYES: without scleral icterus or trauma. ENT/OROPHARYNX: clear and moist. LYMPHADENOPATHY/NECK: Is supple without lymphadenopathy or meningismus. RESPIRATORY: Lungs clear and equal. CARDIOVASCULAR: Regular rate and rhythm. GI/ABDOMEN: Soft and nontender. No organomegaly or pulsatile mass. No rebound or guarding. Normal bowel sounds. EXTREMITIES: Warm and well perfused. BACK: No CVA tenderness. NEUROLOGICAL: Intact without focal deficits. PSYCHIATRIC: normal affect. MUSCULOSKELETAL: Normally developed with good muscle tone. Medical Decision & Procedures ER Provider Diagnostic Interpretation: CHEST X-RAY: The results were interpreted by me. No pneumonia. No pneumothorax. No acute disease. Laboratory Results 06/11/17 23:25 Red Blood Count 5.62, Mean Corpuscular Volume 87.7, Mean Corpuscular Hemoglobin 30.6, Mean Corpuscular Hemoglobin Concent 34.9, Mean Platelet Volume 10.8, Neutrophils (%) (Auto) 54.7, Lymphocytes (%) (Auto) 34.9, Monocytes (%) (Auto) 6.9, Eosinophils (%) (Auto) 3.0, Basophils (%) (Auto) 0.3, Neutrophils # (Auto) 6.07, Lymphocytes # (Auto) 3.86, Monocytes # (Auto) 0.76, Eosinophils # (Auto) 0.33, Basophils # (Auto) 0.03 06/11/17 23:25 Test 06/11/17 23:25 White Blood Count 11.07 K/uL (4.8-10.8) Red Blood Count 5.62 M/uL (4.7-6.1) Hemoglobin 17.2 g/dL (14.0-18.0) Hematocrit 49.3 % (42-52) Mean Corpuscular Volume 87.7 fL (80-100) Mean Corpuscular Hemoglobin 30.6 pg (25-34) Mean Corpuscular Hemoglobin Concent 34.9 g/dl (32-36) Platelet Count 374 K/uL (130-400) Mean Platelet Volume 10.8 fL (7.4-10.4) Neutrophils (%) (Auto) 54.7 % Lymphocytes (%) (Auto) 34.9 % Monocytes (%) (Auto) 6.9 % Eosinophils (%) (Auto) 3.0 % Basophils (%) (Auto) 0.3 % Neutrophils # (Auto) 6.07 K/uL (1.4-6.5) Lymphocytes # (Auto) 3.86 K/uL (1.2-3.4) Monocytes # (Auto) 0.76 K/uL (0.11-0.59) Eosinophils # (Auto) 0.33 K/uL (0-0.5) Basophils # (Auto) 0.03 K/uL (0-0.2) RDW Standard Deviation 43.2 fL (36.4-46.3) RDW Coefficient of Variation 13.3 % (11.5-14.5) Immature Granulocyte % (Auto) 0.2 % Immature Granulocyte # (Auto) 0.02 K/uL (0.00-0.02) Anion Gap 7.0 mmol/L (3-11) Est Creatinine Clear Calc Drug Dose 89.5 ml/min Estimated GFR () 110.5 Estimated GFR (Non- 95.4 BUN/Creatinine Ratio 11.6 (10-20) Calcium Level 9.3 mg/dl (8.5-10.1) Total Bilirubin 0.6 mg/dl (0.2-1) Direct Bilirubin 0.1 mg/dl (0-0.2) Aspartate Amino Transf (AST/SGOT) 14 U/L (15-37) Alanine Aminotransferase (ALT/SGPT) 21 U/L (12-78) Alkaline Phosphatase 103 U/L (45-117) Total Protein 7.8 gm/dl (6.4-8.2) Albumin 4.5 gm/dl (3.4-5.0) Lipase 202 U/L (73-393) Laboratory results as stated above per my review. Medications Administered Medications (Trade) Dose Ordered Sig/Carlie Route Start Time Stop Time Status Last Admin Dose Admin Sodium Chloride 1,000 ml @ 999 mls/hr Q1H1M STAT IV 06/11/17 23:32 06/12/17 00:32 DC 06/11/17 23:40 999 MLS/HR Ondansetron HCl (Zofran Inj) 4 mg NOW STAT IV 06/11/17 23:32 06/11/17 23:34 DC 06/11/17 23:40 4 MG ED Course 2329: Previous medical records were reviewed. The patient was evaluated in room C8. A complete history and physical examination was performed. 2332: Ordered Zofran Inj 4 mg IV, NSS 1000 ml @ 999 mls/hr IV. 0023: On reevaluation, the patient is resting comfortably. I discussed the results and findings with the patient. He verbalized agreement of the treatment plan. The patient was discharged home. Medical Decision Differential considered: pancreatitis, hepatitis, or acute cholecystitis, AAA, UTI, pyelonephritis, kidney stones, appendicitis, diverticulitis, shingles, bowel obstruction mesenteric ischemia, intussusception, hernia, testicular torsion. This is a 42-year-old male who presents to the ED with a chief complaint of diarrhea. The patient states that his symptoms have been ongoing for months. He states that tonight he had 2 episodes of vomiting after eating. The patient also reports some discomfort in his abdomen and a migraine. He reports that he had a colonoscopy in May that was unremarkable. His vital signs are normal. His physical exam was unremarkable. His abdomen is soft nontender. CBC and chemistry panel was unremarkable, lipase is negative. Chest x-ray did not show acute process. The patient states that his symptoms are the same as when he was here the last time. Her evaluation also come up negative. The patient was told the results. He is felt to be stable for discharge. Did recommend follow-up with his GI specialist and PCP. Medication Reconcilliation Current Medication List: was personally reviewed by me Blood Pressure Screening Patient's blood pressure: Normal blood pressure Blood pressure disposition: Did not require urgent referral Impression Primary Impression: Vomiting and diarrhea Scribe Attestation The scribe's documentation has been prepared under my direction and personally reviewed by me in its entirety. I confirm that the note above accurately reflects all work, treatment, procedures, and medical decision making performed by me. Departure Information Dispostion Home / Self-Care Referrals Rossy Dubon M.D. (PCP) Forms Call Back Authorization, HOME CARE DOCUMENTATION FORM, IMPORTANT VISIT INFORMATION Patient Instructions My [facility] Additional Instructions Follow-up with your PCP and see her GI specialist. Laboratory tests today were unremarkable. X-ray was normal.
[2017-06-12 00:30] VITALS: BP 112/79; PULSE 74; O2SAT 98
--- NOTE | 2017-06-12 06:42 | DIAGNOSTIC IMAGING REPORT ---
CHEST ONE VIEW PORTABLE HISTORY: 42 years-old Male ABDOMINAL PAIN/GI acute generalized abdominal pain with vomiting and diarrhea COMPARISON: Chest radiograph 08/13/2016 TECHNIQUE: Portable AP view the chest FINDINGS: Cardiomediastinal and hilar silhouettes are within normal limits. There is no pneumothorax, pleural effusion, focal airspace consolidation or overt pulmonary edema. The bones of the chest appear grossly intact. IMPRESSION: No acute process. The above report was generated using voice recognition software. It may contain grammatical, syntax or spelling errors. Electronically signed by: Blayne Woods M.D. 06/12/2017 6:41 AM Dictated Date/Time: 06/12/2017 6:40 AM
== END 2017-06-12 00:31 | disposition home or self-care (01) ==
LOC: C.EDB 23:09 → C.EDC 06-12 00:31
DX: R11.2 Nausea with vomiting, unspecified (principal); R19.7 Diarrhea, unspecified; F41.9 Anxiety disorder, unspecified; F32.9 Major depressive disorder, single episode, unspecified; F17.200 Nicotine dependence, unspecified, uncomplicated; F12.10 Cannabis abuse, uncomplicated; Z83.3 Family history of diabetes mellitus; Z82.49 Family history of ischemic heart disease and other diseases of the circulatory system

== ENCOUNTER → 2017-07-03 | Outpatient (CLI) | payer OTHER ==
[~2017-07-03] MED LIST changes: -HYDR2.5C37 TOP
--- NOTE | 2017-07-03 12:20 | DIAGNOSTIC IMAGING REPORT ---
GI W/AIR SMALL BOWEL ROUTINE CLINICAL HISTORY: Nausea, vomiting, weight loss and left-sided abdominal pain. COMPARISON STUDY: KUB May 01, 2017. FLUOROSCOPY TIME: 3.1 minutes. TECHNIQUE: A geological scout KUB was obtained followed by an upper GI series and small bowel follow-through. 34 fluoroscopic images were obtained. FINDINGS: The bowel gas pattern is normal. There is a suspected proximal right femoral bone island. Esophageal motility was normal. No esophageal mass or stricture was noted. No hiatal hernia was identified. No reflux was elicited. Gastric fold pattern was normal. Duodenum was unremarkable. The jejunal and ileal fold patterns were normal. No small bowel mass or other mucosal abnormality was identified. No stricture was identified. Terminal ileum was normal. Transit time to the cecum was normal at 2 hours and 30 minutes. IMPRESSION: Normal upper GI series and small bowel follow-through. Electronically signed by: Jimmy Dubon M.D. 07/03/2017 12:19 PM Dictated Date/Time: 07/03/2017 12:16 PM
== END | disposition home or self-care (01) ==
LOC: C.RAD 08:20
PROVIDERS: ATTEND Internal Medicine Gastroenterology
DX: K52.9 Noninfective gastroenteritis and colitis, unspecified (principal); R12 Heartburn